=== PATIENT | male | born 1995 | race Caucasian/White ===

== ENCOUNTER 2022-03-24 16:56 | Emergency (ER) | payer OTHER ==
[2022-03-24 19:24] LABS: HEMOGLOBIN 17.3 gm/dl (14.0-17.5); RED BLOOD COUNT 5.94 M/UL (4.20-5.50); WHITE BLOOD COUNT 9.9 K/UL (4.5-11.0)
[2022-03-24 19:29] LABS: BUN/CREATININE RATIO 32 (0-10)
[2022-03-24] MEDS ORDERED: IMODIUM CAP 2 MG2 MG PO (22:26)
[2022-03-24] MEDS ORDERED: ONDANSETRON ODT4 MG SL (22:26)
== END 2022-03-24 22:54 ==
LOC: ER1 16:56
PROVIDERS: Student in an Organized Health Care Education/Training Program
DX: R11.2 Nausea with vomiting, unspecified (principal); R10.84 Generalized abdominal pain; R19.7 Diarrhea, unspecified; R10.817 Generalized abdominal tenderness; E10.9 Type 1 diabetes mellitus without complications; F17.200 Nicotine dependence, unspecified, uncomplicated
CPT/HCPCS: 80053; 83690; 85025; 96360; 96372; 99284; J1885

== ENCOUNTER 2022-03-26 19:53 | Inpatient (IN) | payer OTHER ==
[~2022-03-26] VITALS: Ht 175.3 cm; Wt 75.8 kg
[~2022-03-26 19:53] MED LIST: IMODIUM CAP 2 MG2 MG PO; ONDANSETRON ODT4 MG SL
[2022-03-26 20:33] LABS: HEMOGLOBIN 17.3 gm/dl (14.0-17.5); RED BLOOD COUNT 5.9 M/UL (4.20-5.50)
[2022-03-26 20:36] LABS: WHITE BLOOD COUNT 19.2 K/UL (4.5-11.0)
[2022-03-26 21:19] LABS: BUN/CREATININE RATIO 37 (0-10)
[2022-03-27 00:24] LABS: BUN/CREATININE RATIO 37 (0-10)
[2022-03-27] MEDS ORDERED: CLONIDINE HCL0.1 MG PO (11:12)
[2022-03-27] MEDS ORDERED: BUPROPION HCL150 MG PO (11:12)
[2022-03-27] MEDS ORDERED: ROPINIROLE HC0.25 MG PO (11:13)
[2022-03-27] MEDS ORDERED: PRAZOSIN HCL5 MG PO (11:13)
[2022-03-27] MEDS ORDERED: NOVOLOG 10100 UNITS/ INJ (11:15)
[2022-03-27] MEDS ORDERED: [UNRECOGNIZED DRUG - SUPPLY] MC (11:17)
[2022-03-27 14:26] LABS: HEMOGLOBIN 15.3 gm/dl (14.0-17.5); RED BLOOD COUNT 5.3 M/UL (4.20-5.50); WHITE BLOOD COUNT 12.8 K/UL (4.5-11.0)
[2022-03-27 15:09] LABS: BUN/CREATININE RATIO 28 (0-10)
[2022-03-27 21:56] LABS: BUN/CREATININE RATIO 26 (0-10)
--- NOTE | 2022-03-27 23:55 | NUR ---
LAB ATTEMPTED TO STICK PT MULTIPLE TIMES, OBTAINED BLOOD SPECIMEN VIA FINGER STICK X2 IN WHICH BLOOD HEMOLYZED BOTH TIMES PER LAB.
[2022-03-28 05:58] LABS: BUN/CREATININE RATIO 23 (0-10)
[2022-03-28 13:10] LABS: HEMOGLOBIN 13.3 gm/dl (14.0-17.5); RED BLOOD COUNT 4.61 M/UL (4.20-5.50); WHITE BLOOD COUNT 8.3 K/UL (4.5-11.0)
[2022-03-28 13:22] LABS: BUN/CREATININE RATIO 16 (0-10)
[2022-03-28 20:30] LABS: BUN/CREATININE RATIO 25 (0-10)
[2022-03-29 04:53] LABS: HEMOGLOBIN 12.9 gm/dl (14.0-17.5); RED BLOOD COUNT 4.48 M/UL (4.20-5.50)
[2022-03-29 05:14] LABS: BUN/CREATININE RATIO 22 (0-10)
[2022-03-29 12:06] LABS: BUN/CREATININE RATIO 23 (0-10)
[2022-03-30 05:32] LABS: BUN/CREATININE RATIO 23 (0-10)
[2022-03-30] MEDS ORDERED: LANTUS INS100 UTS/M1 SQ (14:15)
[2022-03-30] MEDS ORDERED: GLUCAGEN1 MG/1 ML IM (14:15)
== END 2022-03-30 15:56 | disposition home or self-care (01) | DRG 637 ==
LOC: ER1 19:53 → CCU 21:59 → CDU 21:59 → CCU 03-27 01:59
PROVIDERS: Emergency Medicine; Internal Medicine; ADMIT Internal Medicine
DX: E10.10 Type 1 diabetes mellitus with ketoacidosis without coma (principal); G93.41 Metabolic encephalopathy; Z20.822 Contact with and (suspected) exposure to COVID-19; D72.829 Elevated white blood cell count, unspecified; Z96.41 Presence of insulin pump (external) (internal); F10.10 Alcohol abuse, uncomplicated; E87.6 Hypokalemia; Z79.4 Long term (current) use of insulin
CPT/HCPCS: 0240U; 36415; 36600; 71045; 80048; 80053; 80307; 81001; 82009; 82140; 82550; 82553; 82800; 82803; 82962; 83605; 83735; 84100; 84132; 84484; 85025; 85027; 87040; 87086; 96365; 96366; 96374; 96375; 99285; G0480; J0692; J0696; J3370; J7070